=== PATIENT | male | born 1960 | race Caucasian/White ===

== ENCOUNTER → 2019-10-27 07:40 | Outpatient (CLI) | payer BC, SELFPAY ==
--- NOTE | 2019-10-27 07:48 | CT_ITS ---
STUDY: CTA CHEST REASON FOR EXAM: Male, 59 years old. RESTRICTIVE LUNG DISEASE, SOB. Pt has hx of heart stent. NO diabetes or HTN. RADIATION DOSAGE (If Supplied By Facility): CTDIvol = ( 12.56 ) mGy, DLP = ( 518.03 ) mGycm TECHNIQUE: The examination was performed with the intravenous administration of Isovue 370 100ml. Post-processing of the angiographic images was performed, with multiplanar reformation and 3D reconstruction. Individualized dose optimization techniques were used for this CT. COMPARISON: None. FINDINGS: Normal enhancement of the main pulmonary artery and right and left pulmonary arteries. Normal enhancement of the bilateral peripheral pulmonary arteries. There is no demonstrated pulmonary embolism. Normal thoracic aorta and visualized great vessels. There is no demonstrated aortic dissection. There are calcifications of the coronary arteries. Normal mediastinum. Normal hilar regions. Normal visualized trachea and bronchi. The lungs are well expanded. Normal pulmonary parenchyma. Normal pleura. Normal chest wall structures. There are degenerative changes of thoracic spine. Small gallstones are seen in the gallbladder lumen. CT/CTA Chest W/WO Contrast IMPRESSION: No evidence of pulmonary embolism. Small gallstones. Electronically Signed: Ja Linder, at 8:27 EDT , Service support ,
== END ==
DX: J98.4 Other disorders of lung (principal)
CPT/HCPCS: 71275; Q9967; A4216